=== PATIENT | female | born 2000 | race African-American/Black ===

== ENCOUNTER → 2021-02-21 | Day surgery (SDC) | payer OTHER ==
[~2021-02-21] VITALS: Ht 165.1 cm; Wt 124.7 kg
[~2021-02-21] MED LIST: AUGMENTIN 875-1 EACH PO; BACTRIM DS TAB1 EACH PO; FIORICET1 EACH PO; NAPROXEN500 MG PO; TOPIRAMATE50 MG PO; ZOFRAN4 MG SL; ZOFRAN8 MG PO
[2021-02-21 07:25] LABS: HCG (URINE) SCREEN NEGATIVE (NEGATIVE)
[2021-02-21 10:07] LABS: ALBUMIN 3.7 g/dL (3.4-5.0); BILIRUBIN - DIRECT 0.2 mg/dL (0.00-0.20); BILIRUBIN - TOTAL 0.7 mg/dL (0.2-1.0); GLOBULIN (CALCULATION) 3.5 g/dL; TOTAL PROTEIN 7.2 g/dL (6.4-8.2)
== END | disposition home or self-care (01) ==
LOC: FAS 07:02
PROVIDERS: Anesthesiology; Surgery
DX: K58.9 Irritable bowel syndrome, unspecified (principal); K29.50 Unspecified chronic gastritis without bleeding; K21.9 Gastro-esophageal reflux disease without esophagitis; K76.0 Fatty (change of) liver, not elsewhere classified; G43.909 Migraine, unspecified, not intractable, without status migrainosus; F41.9 Anxiety disorder, unspecified; F32.9 Major depressive disorder, single episode, unspecified; J45.909 Unspecified asthma, uncomplicated; F12.90 Cannabis use, unspecified, uncomplicated; F17.210 Nicotine dependence, cigarettes, uncomplicated; Z88.8 Allergy status to other drugs, medicaments and biological substances
CPT/HCPCS: 36415; 80076; 82150; 83690; 84703; J2250; J2704; J7120